=== PATIENT | female | born 1975 | race Hispanic/Latino ===

== ENCOUNTER 2020-10-19 10:38 | Outpatient (CLI) | payer BC ==
[2020-10-19 12:33] LABS: Bilirubin Neg (Negative); Blood, Urine Negative (Negative); Clarity Clear (Clear); Glucose, Urine (Dipstick) Normal (Negative); Ketone, Urine Negative (Negative); Leukocyte Negative (Negative); Nitrite Negative (Negative); Protein, Urine (Dipstick) Negative (Neg-Trace); Specific Gravity, Urine 1.015 (1.002-1.036); Urobilinogen Normal mg/dL (Less than 2)
[2020-10-19 12:42] LABS: Hemoglobin 12.9 g/dL (12.0-15.5); Mean Corpuscular HGB CONC 32.7 g/dL (32.0-36.0); Mean Corpuscular Hemoglobin 29.7 pg (27.0-33.0); Mean Corpuscular Volume 90.6 fl (81.6-98.3); Platelet Count 178 10x3/uL (150-450); RBC Distribution Width 13.3 % (11.5-14.5); Red Blood Cell (RBC) Count 4.35 10x6/uL (3.90-5.03); White Blood Cell (WBC) Count 5.7 10x3/uL (3.5-10.5)
[2020-10-19 12:52] LABS: Bacteria/HPF Rare-Few HPF (None Seen); RBC/HPF None Seen HPF (0-3)
[2020-10-19 12:53] LABS: BHCG - Serum Negative (NEGATIVE); Pregs Control Background? CLEAR/WHITE (CLR/WHITE); Pregs Control Bar Appear? YES (CONTROL BAR)
== END 2020-10-19 10:39 | disposition home or self-care (01) ==
LOC: CSHLAB 10:38
PROVIDERS: ATTEND Obstetrics & Gynecology
DX: Z01.812 Encounter for preprocedural laboratory examination (principal); D25.9 Leiomyoma of uterus, unspecified; N93.8 Other specified abnormal uterine and vaginal bleeding; N80.0 Endometriosis of uterus
CPT/HCPCS: 81001; 84703; 85027

== ENCOUNTER 2020-10-20 05:47 | Day surgery (SDC) | payer BC ==
[2020-10-19 09:56] VITALS: BMI 21.0
[2020-10-20] MEDS ORDERED: EPINEPHrine 1 MG/ML AMP ONE (06:31)
[2020-10-20] MEDS ORDERED: Bupivacaine PF 0.5% 30 ML VIAL ONE (06:32)
[2020-10-20] MEDS ORDERED: Lidocaine 1% MPF 2 ML VIAL ONE (06:34)
[2020-10-20] MEDS ORDERED: SUGAMMADEX SODIUM 500 MG/5 ML VIAL ONE (06:50)
[2020-10-20] MEDS ORDERED: Lidocaine 2% PF 5 ML VIAL ONE (06:51)
[2020-10-20] MEDS ORDERED: Fentanyl 100 MCG/2 ML VIAL ONE ×2 (06:51→09:10)
[2020-10-20] MEDS ORDERED: Ketorolac Tromethamine 15 MG/ML VIAL ONE ×2 (06:51→07:35)
[2020-10-20] MEDS ORDERED: PROPOFOL 20 ML ONE (06:51)
[2020-10-20] MEDS ORDERED: Dexamethasone 4 mg/ml Vial ONE (06:52)
[2020-10-20] MEDS ORDERED: Ondansetron PF 4 MG/2 ML Vial ONE (06:52)
[2020-10-20] MEDS ORDERED: Metoclopramide HCl 10 MG/2 ML VIAL ONE (06:52)
[2020-10-20] MEDS ORDERED: Rocuronium Bromide 10 MG/ML (10ML VIAL) ONE (06:52)
[2020-10-20] MEDS ORDERED: Midazolam HCl 2 mg/2 ml Vial ONE (06:59)
[2020-10-20] MEDS ORDERED: Famotidine/PF 20 mg/2ml Vial ONE (06:59)
[2020-10-20] MEDS ORDERED: Meperidine HCl/PF 25 MG/ML VIAL ONE (10:06)
[2020-10-20 14:43] LABS: Hemoglobin 12.5 g/dL (12.0-15.5); Mean Corpuscular HGB CONC 33.1 g/dL (32.0-36.0); Mean Corpuscular Hemoglobin 29.8 pg (27.0-33.0); Mean Corpuscular Volume 90.2 fl (81.6-98.3); Mean Platelet Volume 11.6 fl (7.4-10.4); Platelet Count 155 10x3/uL (150-450); RBC Distribution Width 13.2 % (11.5-14.5); Red Blood Cell (RBC) Count 4.19 10x6/uL (3.90-5.03); White Blood Cell (WBC) Count 10.5 10x3/uL (3.5-10.5)
== END 2020-10-20 15:40 | disposition home or self-care (01) ==
LOC: CSHSDC 05:47
PROVIDERS: ATTEND Obstetrics & Gynecology
PROC: 0UT94ZZ Resection of Uterus, Percutaneous Endoscopic Approach (ICD-10-PCS; principal; 2020-10-20)
PROC: 0UT74ZZ Resection of Bilateral Fallopian Tubes, Percutaneous Endoscopic Approach (ICD-10-PCS; principal; 2020-10-20)
DX: N80.0 Endometriosis of uterus (principal); N88.8 Other specified noninflammatory disorders of cervix uteri; N80.2 Endometriosis of fallopian tube; N80.3 Endometriosis of pelvic peritoneum; N73.6 Female pelvic peritoneal adhesions (postinfective); K21.9 Gastro-esophageal reflux disease without esophagitis; Z79.2 Long term (current) use of antibiotics; Z79.899 Other long term (current) drug therapy
CPT/HCPCS: 36415; 85027; 88304; 88307; C1765; J0171; J0690; J1100; J1885; J2001; J2175; J2250; J2405; J2704; J2765; J3010; S0020; S0028

== ENCOUNTER 2021-10-04 08:20 | Outpatient (CLI) | payer BC | END 2021-10-04 08:21 | disposition home or self-care (01) | LOC: CSHMAMMO 08:20 | PROVIDERS: ATTEND Family Medicine | DX: Z12.31 Encounter for screening mammogram for malignant neoplasm of breast (principal) | CPT/HCPCS: 77063; 77067 ==